=== PATIENT | male | born 1980 | race Caucasian/White ===

== ENCOUNTER 2023-04-04 10:44 | Emergency (ER) | payer OTHER, SELFPAY ==
[2023-04-04 10:50] VITALS: BP 127/81; PULSE 67; RESP 18; TEMP 37; O2SAT 98; BMI 26.6
--- NOTE | 2023-04-04 11:06 | EXP.UTC ---
Discharge Plan Disposition Patient Disposition: Home, Self-Care Condition: Good Prescriptions Prescriptions: New prednisone 10 mg tablets,dose pack See Rx Instructions .ROUTE .COMPLEX Qty: 21 0RF Rx Instructions: Take as directed on package instructions Referrals Follow up/Referrals: Provider,Referral, MD [Primary Care Provider] - See instructions Activity Restrictions/Add. Instructions Additional Instructions/Restrictions: Start oral steriods tomorrow Oatmeal baths may help to dry the rash and help with itching Over the counter Calamine lotion on rash Over the counter Benadryl may help with itching Follow up with your Family Doctor or Eye Doctor if symptoms get worse Clinical Impressions Clinical Impression: Poison bernadette dermatitis Instructions Patient Instructions: Poisonous Plants: Bernadette, Mouthcard, and [place]: Beware the Oils, Poison Bernadette, Poison [place]outhcard, Poison [place], DI for Poison Bernadette Allergy Discharge ED Provider[place] Regi Herrera [facility] [place] Stated complaint: possible poison bernadette all over Mode of Arrival: Ambulatory Source of Information: Patient Limitations: No Limitations Time Seen by Provider: 04/04/23 11:07 Description of Symptoms (Recalled from Triage Doc. 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 and got into some poison bernadette States that he has it all over his body, on his face, neck, arms and inside his legs States he has been using calamine lotion but then it started around his left eye and had some swelling so he came in to get steriods like he has had to do before to get it taken care of Related Data Previous Rx's Medication Instructions Recorded prednisone 10 mg tablets in a dose See Rx Instructions PO .COMPLEX 04/04/23 pack #21 tabs Allergies Allergy/AdvReac Type Severity Reaction Status Date / Time No Known Allergies Allergy Verified 04/04/23 10:56 Worker's Comp Is this a Worker's Comp case?: No [facility] Disclaimer: The information contained in this section may have been updated after the patient was seen, as this information can be updated by other users. Medical History (Updated 04/04/23 @ 11:11 by Regi Herrera APRN) No significant past medical history Social History Smoking Status: Unknown if ever smoked alcohol intake: never current occupational status: employed Travel in the last 8 weeks: None ROS Obtained: Yes All systems reviewed & no additional complaints except as documented and Yes Systems reviewed as appropriate & no additional complaints except as documented Constitutional Constitutional: Reports system reviewed and no additional complaints, except as documented and Reports as per HPI ENT Ears, Nose, Mouth, and Throat: Reports system reviewed and no additional complaints, except as documented and Reports as per HPI Cardiovascular Cardiovascular: Reports system reviewed and no additional complaints, except as documented and Reports as per HPI Respiratory Respiratory: Reports system reviewed and no additional complaints, except as documented and Reports as per HPI Gastrointestinal Gastrointestingal: Reports system reviewed and no additional complaints, except as documented and as per HPI Integumentary/Breasts Skin/Breast: Reports system reviewed and no additional complaints, except as documented, Reports as per HPI, Reports pruritus and Reports rash Physical Exam General General appearance: alert and in no apparent distress Respiratory Respiratory exam: Present normal lung sounds bilaterally; Absent respiratory distress or wheezes Cardiovascular Cardiovascular exam: Present regular rate,
[2023-04-04 11:16] VITALS: BP 127/81; PULSE 67; RESP 18; TEMP 37; O2SAT 98
== END 2023-04-04 11:28 | disposition home or self-care (01) ==
PROVIDERS: Emergency Provider Nurse Practitioner
DX: L23.7 Allergic contact dermatitis due to plants, except food (principal); W60.XXXA Contact with nonvenomous plant thorns and spines and sharp leaves, initial encounter
CPT/HCPCS: 96372; 99204; 99212; G0463